=== PATIENT | female | born 1950 | race Caucasian/White ===

== ENCOUNTER 2019-06-24 16:49 | Inpatient (IN) | payer MEDICARE, OTHER ==
[2019-06-24] MEDS ORDERED: ASPIRIN 81 MG PO STA ×2 (17:18→17:25)
[2019-06-24] MEDS ORDERED: SODIUM CHLORIDE 0.9% 1,000 ML IV STA (17:18)
[2019-06-24] MEDS ORDERED: HEPARIN SODIUM,PORCINE 5,000 UNIT/ML 1 ML VIAL IV STA ×2 (17:18→17:26)
[2019-06-24] MEDS ORDERED: HEPARIN SODIUM,PORCINE 5,000 UNIT/ML 1 ML VIAL IV PRN (17:19)
[2019-06-24] MEDS ORDERED: MORPHINE SULFATE 4 MG/ML SYRINGE IV PRN (17:19)
[2019-06-24] MEDS ORDERED: NITROGLYCERIN SL TABS 0.4 MG TAB SUBLINGUAL PRN ×2 (17:19→19:02)
[2019-06-24] MEDS ORDERED: ATORVASTATIN 80 MG TAB PO STA (17:25)
[2019-06-24] MEDS ORDERED: HEPARIN SOD,PORK IN 0.45% NACL 25,000 UNIT in 0.45% NACL 1 250ML.BAG IV SCH (17:30)
[2019-06-24] MEDS ORDERED: METOPROLOL TARTRATE 25 MG TAB PO STA (17:31)
[2019-06-24 17:33] LABS: HCT 44.2 % (34.0-46.0); HGB 15.2 gm/dL (11.4-16.0); MCH 29.5 pg (25.0-35.0); MCHC 34.3 g/dL (31.0-37.0); MCV 85.9 fL (80.0-100.0); Mean Platelet Volume 7.4; Platelet Count 333 k/uL (150-450); RBC 5.14 m/uL (3.80-5.40); RDW 15.8 % (11.5-15.5); WBC 14.7 k/uL (3.8-10.6)
--- NOTE | 2019-06-24 17:34 | XR ---
EXAMINATION TYPE: XR chest 1V portable DATE OF EXAM: 06/24/2019 COMPARISON: NONE HISTORY: Chest pain TECHNIQUE: Single frontal view of the chest is obtained. FINDINGS: There is no heart failure nor confluent pneumonic infiltrate. Costophrenic angles are venu r. Her chest leads. Diaphragm is normal. IMPRESSION: Normal chest
[2019-06-24 17:40] LABS: INR 0.9 (<1.2); Partial Thromboplastin Time 23.8 sec (22.0-30.0); Prothrombin Time 10.1 sec (9.0-12.0)
[2019-06-24 17:42] LABS: ALT 58 U/L (9-52); AST 125 U/L (14-36); African American GFR (CKD) >90 (>60 ml/min/1.73 sqM); Albumin 4.6 g/dL (3.5-5.0); Alkaline Phosphatase 95 U/L (38-126); Anion Gap 11 mmol/L; Blood Urea Nitrogen 10 mg/dL (7-17); Carbon Dioxide 24 mmol/L (22-30); Chloride 103 mmol/L (98-107); Glucose 140 mg/dL (74-99); Potassium 4.1 mmol/L (3.5-5.1); Sodium 138 mmol/L (137-145); Total Bilirubin 0.9 mg/dL (0.2-1.3); Total Protein 7.7 g/dL (6.3-8.2)
[2019-06-24] MEDS ORDERED: SODIUM CHLORIDE 0.9% 1,000 ML IV ONE (17:45)
[2019-06-24] MEDS ORDERED: fentaNYL (PF) 50 MCG/ML 2 ML AMP ONE (17:56)
--- NOTE | 2019-06-24 17:56 | ED ---
Chest Pain HPI - General Chief Complaint: Chest Pain Stated Complaint: CHEST PAIN, BACK/SHOULDER BLADE PAIN Time Seen by Provider: 06/24/19 17:07 Source: patient, RN notes reviewed, old records reviewed Mode of arrival: ambulatory Limitations: no limitations - History of Present Illness Initial Comments: This is a 69-year-old female the ER for evaluation she presents today for evaluation regards to chest pain patient has had episodic chest pain for a few days to weeks. Patient started with persistent chest pain starting last night into today. She was able to sleep with difficulty and pain. Patient has pain related to both back, scapular area. Mild nausea no vomiting. No recent fevers cough or congestion no travel history. Patient has occasional shortness of breath but no diaphoresis. No history of high blood pressure normal cholesterol no diabetes no smoking. A she has no change in medications recently. No prior evaluation by cardiology MD Complaint: chest pain (to the back of his shoulder blades), other (SOB) -: hour(s) Onset: during rest Pain Location: substernal, left chest Pain Radiation: back Severity: moderate Severity scale (1-10): 7 Quality: aching Consistency: constant Improves With: nothing Worsens With: nothing Anginal Symptoms: nausea, dyspnea Other Symptoms: other (None) Treatments Prior to Arrival: none - Related Data Home Medications Medication Instructions Recorded Confirmed No Known Home Medications 06/24/19 06/24/19 Allergies Allergy/AdvReac Type Severity Reaction Status Date / Time codeine Allergy Unknown Verified 06/24/19 17:49 Review of Systems ROS Statement: Those systems with pertinent positive or pertinent negative responses have been documented in the HPI. ROS Other: All systems not noted in ROS Statement are negative. Past Medical History Past Medical History: No Reported History History of Any Multi-Drug Resistant Organisms: None Reported Past Surgical History: Hernia Repair, Hysterectomy, Tonsillectomy Additional Past Surgical History / Comment(s): D&C Past Psychological History: No Psychological Hx Reported Smoking Status: Current every day smoker Past Alcohol Use History: Occasional Past Drug Use History: None Reported General Exam Limitations: no limitations General appearance: alert, in no apparent distress, anxious Head exam: Present: atraumatic, normocephalic, normal inspection Eye exam: Present: normal appearance, EOMI. Absent: scleral icterus, conjunctival injection, periorbital swelling ENT exam: Present: normal exam, mucous membranes moist Neck exam: Present: normal inspection. Absent: tenderness, meningismus, lymphadenopathy Respiratory exam: Present: normal lung sounds bilaterally. Absent: respiratory distress, wheezes, rales, rhonchi, stridor Cardiovascular Exam: Present: regular rate, normal rhythm, normal heart sounds. Absent: systolic murmur, diastolic murmur, rubs, gallop, clicks GI/Abdominal exam: Present: soft, normal bowel sounds. Absent: distended, tenderness, guarding, rebound, rigid Extremities exam: Present: normal inspection, full ROM, normal capillary refill. Absent: tenderness, pedal edema, joint swelling, calf tenderness Back exam: Present: normal inspection Neurological exam: Present: alert, oriented X3, CN II-XII intact Psychiatric exam: Present: normal affect, normal mood Skin exam: Present: warm, dry, intact, normal color. Absent: rash Course Vital Signs 06/24/19 06/24/19 06/24/19 16:57 17:24 17:30 Temperature 98.2 F Pulse Rate 95 96 96 Pulse Rate [ Ceramic Tile Mechanic ] Respiratory 18 18 18 Rate Blood Pressure 129/89 136/94 O2 Sat by Pulse 98 Oximetry 06/24/19 06/24/19 17:35 17:36 Temperature Pulse Rate 95 Pulse Rate [ 97 Ceramic Tile Mechanic ] Respiratory 18 Rate Blood Pressure 136/94 O2 Sat by Pulse 100 Oximetry - Reevaluation(s) Reevaluation #1: 06/24/19 17:20 medical record is reviewer 06/24/19 17:21 STEMI is paged upon review of initial EKG, cath team as well as structural iron erector, Dr. Villar notified Reevaluation #2: 06/24/19 17:52 Dr. Villar is at bedside evaluating patient Reevaluation #3: 06/24/19 17:55 Studies Chest x-rays negative for acute disease - Consultations Consultation #1: Spoke with Dr. Perera regarding patient, he is aware of admission Procedures - [place] Protocol (Time Out) Patient Identification (2 identifiers required): Chart, Verbal, Arm Band, Name, Birthdate Patient/Legal Lump Room Supervisor has Confirmed: Identity, Procedure Site Marked: Not Applicable Chest Pain MDM - MDM 69 female the ER for evaluation. Patient presents today for evaluation of chest pain. Positive ST elevation [place], cardiology did evaluate patient in ER taken to [facility]. Critical Care Time Critical Care Time: Yes Total Critical Care Time: 31 Disposition Clinical Impression: ST elevation myocardial infarction (STEMI) Disposition: ADMITTED IP TO THIS HOSP Condition: Serious Is patient prescribed a controlled substance at d/c from ED?: No Referrals: Sunita Rivas DO [Primary Care Provider] - 1-2 days
[2019-06-24] MEDS ORDERED: fentaNYL (PF) 50 MCG/ML 2 ML AMP IVP ONE (17:57)
[2019-06-24] MEDS ORDERED: LIDOCAINE 1% INJ 10MG/ML (20 ML MDV) SQ ONE (17:58)
[2019-06-24] MEDS ORDERED: BIVALIRUDIN 250 MG in SODIUM CHLORIDE 0.9% 50 ML IV ONE (17:59)
[2019-06-24] MEDS ORDERED: BIVALIRUDIN BOLUS 250 MG/50 ML IV ONE (17:59)
[2019-06-24] MEDS ORDERED: TICAGRELOR 90 MG TAB PO ONE (18:00)
[2019-06-24] MEDS ORDERED: TICAGRELOR 90 MG TAB ONE (18:00)
--- NOTE | 2019-06-24 18:00 | P.CRDCN ---
History of Present Illness History of present illness: This is Dr. De La Cruz dictating a consult on this patient The patient was interviewed and examined by me in the ER Called by the ER physician for this 69-year-old female presenting with chest discomfort and ST elevation in the precordial leads IMPRESSION / ASSESSMENT: 69-year-old female patient presenting with constant chest discomfort since this morning which woke her up Associated ST elevations in V1 through V6 with Q waves in the anterior precordial leads Hemodynamically stable but continuing to have chest discomfort Nondiabetic, no hypertension, Current smoker PLAN: Discussed with patient and her , discussed with ER physician Dr. Elkin antonio urgent coronary angiography and coronary intervention Aspirin, statins, beta blockers LV function assessment tomorrow HPI For the last 3-4 days the patient has been having intermittent interscapular discomfort with associated left shoulder and arm discomfort. She thought it was a gas-like sensation and arthritic pain in her left shoulder and arm. She also would have chest discomfort in the right side at the same time She noted the symptoms thinking that this was simply gas pain and arthritis in her shoulders This morning she woke up early because the pain became constant. However she presented to the hospital only this evening just after 5 PM No syncope no palpitations. She did complain of shortness of breath with average activities ROS: No fever chills or rigors, no cough, phlegm or expectoration, no nausea, vomiting or diarrhea, no hematuria, dysuria, no musculoskeletal complaints, no strokes or seizures, no skin lesions. EXAMINATION: Her vitals are stable. She looks uncomfortable on account of the pain, pulse rate in the 90s, blood pressure 136/94 mmHg 98% O2 sat on room air Afebrile 98.2F Breath sounds are clear no rhonchi no crackles Heart sounds S1 and S2 are normal no gallops no rub Very soft systolic murmur over the precordium Breath sounds are clear no adventitious sounds no rhonchi no crackles at the bases Abdomen soft nontender no masses Pulses are palpable in lower extremities dorsalis pedis bilaterally No lower extremity edema No JVD no hepatojugular reflux Normal mentation REVIEW OF LABS, ECG & MEDICAL DATA hemoglobin 15.2, sodium 138 potassium 4.1 BUN 10 creatinine 0.6 AST 125 ALT 58 total CPK 984 Troponins pending She does not take any medications other than Aleve She is intolerant of codeine Current smoker Past Medical History Past Medical History: No Reported History History of Any Multi-Drug Resistant Organisms: None Reported Past Surgical History: Hernia Repair, Hysterectomy, Tonsillectomy Additional Past Surgical History / Comment(s): D&C Past Psychological History: No Psychological Hx Reported Smoking Status: Current every day smoker Past Alcohol Use History: Occasional Past Drug Use History: None Reported Medications and Allergies Home Medications Medication Instructions Recorded Confirmed Type No Known Home Medications 06/24/19 06/24/19 History Allergies Allergy/AdvReac Type Severity Reaction Status Date / Time codeine Allergy Unknown Verified 06/24/19 17:49 Physical Exam Vitals: Vital Signs Temp Pulse Pulse Resp BP Pulse Ox 06/24/19 17:36 97 06/24/19 17:35 95 18 136/94 100 06/24/19 17:30 96 18 136/94 06/24/19 17:24 96 18 06/24/19 16:57 98.2 F 95 18 129/89 98 Intake and Output 06/24/19 06/24/19 06/24/19 06:59 14:59 22:59 Other: Weight 86.183 kg Results 06/24/19 17:22 06/24/19 17:22 Cardiac Enzymes 06/24/19 Range/Units 17:22 AST 125 H (14-36) U/L Coagulation 06/24/19 Range/Units 17:22 PT 10.1 (9.0-12.0) sec APTT 23.8 (22.0-30.0) sec CBC 06/24/19 Range/Units 17:22 WBC 14.7 H (3.8-10.6) k/uL RBC 5.14 (3.80-5.40) m/uL Hgb 15.2 (11.4-16.0) gm/dL Hct 44.2 (34.0-46.0) % Plt Count 333 (150-450) k/uL Comprehensive Metabolic Panel 06/24/19 Range/Units 17:22 Sodium 138 (137-145) mmol/L Potassium 4.1 (3.5-5.1) mmol/L Chloride 103 (98-107) mmol/L Carbon Dioxide 24 (22-30) mmol/L BUN 10 (7-17) mg/dL Creatinine 0.69 (0.52-1.04) mg/dL Glucose 140 H (74-99) mg/dL Calcium 10.0 (8.4-10.2) mg/dL AST 125 H (14-36) U/L ALT 58 H (9-52) U/L Alkaline Phosphatase 95 (38-126) U/L Total Protein 7.7 (6.3-8.2) g/dL Albumin 4.6 (3.5-5.0) g/dL Current Medications Generic Name Dose Route Start Last Admin Trade Name Freq PRN Reason Stop Dose Admin Aspirin 325 mg 06/25/19 09:00 Aspirin PO DAILY [facility] Atorvastatin Calcium 80 mg 06/25/19 09:00 Lipitor PO DAILY [facility] Heparin Sodium (Porcine) 0 unit 06/24/19 17:19 Heparin IV Q6HR PRN Low PTT Protocol Sodium Chloride 1,000 mls @ 100 mls/hr 06/24/19 17:18 Saline 0.9% IV 06/25/19 03:17 .Q10H STA Heparin Sodium/Sodium Chloride 250 mls @ 9.997 mls/hr 06/24/19 17:30 25,000 unit/ Sodium Chloride IV .Q24H [facility] Protocol 11.6 UNITS/KG/HR Metoprolol Tartrate 25 mg 06/24/19 21:00 Lopressor PO BID [facility] Morphine Sulfate 4 mg 06/24/19 17:19 Morphine Sulfate (Inj) IV Q4HR PRN Chest Pain Nitroglycerin 0.4 mg 06/24/19 17:19 Nitrostat SUBLINGUAL Q5M PRN Chest Pain Intake and Output 06/24/19 06/24/19 06/24/19 06:59 14:59 22:59 Other: Weight 86.183 kg Patient Weight 06/25/19 06:59 Weight 86.183 kg 06/24/19 17:22 06/24/19 17:22
[2019-06-24 18:06] LABS: Creatine Kinase MB 62.1 ng/mL (0.0-2.4)
[2019-06-24 18:09] LABS: Troponin I 8.96 ng/mL (0.000-0.034)
[2019-06-24] MEDS: NITROGLYCERIN 1000MCG/10ML SYRINGE INTRAARTER ONE ×2 (18:09→18:36)
[2019-06-24] MEDS ORDERED: IOPAMIDOL-370 125ML BTL INJ ONE (18:10)
[2019-06-24] MEDS ORDERED: IOPAMIDOL-370 100ML BTL INJ ONE ×2 (18:34→18:49)
[2019-06-24] MEDS ORDERED: RX INFO: IV CONTRAST WAS GIVEN 1 EACH MISC MISCELLANE PRN (19:02)
[2019-06-24] MEDS ORDERED: ZOLPIDEM 5 MG TAB PO PRN (19:02)
[2019-06-24] MEDS ORDERED: ATROPINE SULFATE 0.1 MG/ML 10ML SYRINGE IV PRN (19:02)
[2019-06-24] MEDS ORDERED: MAG HYDROX/AL HYDROX/SIMETH 30 ML CUP PO PRN (19:02)
[2019-06-24 19:12] LABS: Glucose,Whole Blood 124 mg/dL (75-99)
[2019-06-24] MEDS ORDERED: SODIUM CHLORIDE 0.9% 1,000 ML IV SCH (19:15)
[2019-06-24] MEDS ORDERED: METOPROLOL TARTRATE 25 MG TAB PO SCH (21:00)
[2019-06-24] MEDS ORDERED: ACETAMINOPHEN TAB 500 MG TAB PO PRN (21:47)
--- NOTE | 2019-06-25 00:50 | CC ---
CARDIAC CATHETERIZATION REPORT Mrs. Haas is a 69-year-old female with a history of chronic tobacco use. No prior history of coronary artery disease who presented with symptoms of chest discomfort that started at 3 o'clock in the morning. She has been having discomfort on and off for the last 2 days, but constant since 3 o'clock in the morning. She was evaluated in the emergency room by Dr. De La Cruz, was found to have ST elevation anteriorly. In view of that, recommendation made regarding cardiac catheterization. The procedure as well as risks and complications were discussed with the patient who is in full understanding and agreement. DESCRIPTION OF THE PROCEDURE: Patient was brought to the photonic laboratory technician. She was draped and prepped in conventional fashion. She received fentanyl and Benadryl. After achieving moderate conscious sedated state using Xylocaine anesthesia and Seldinger technique, a 6-Ecuadorean sheath was introduced in the right femoral artery. Selective left coronary angiography was performed using 6-Ecuadorean FR4 guiding catheter. After performing angioplasty and stenting, a 6-Ecuadorean 4 bend right Frannie catheter was used to cannulate the right coronary ostium and images of the right coronary artery was performed. Following that, a 6-Ecuadorean tight pigtail catheter was introduced in the left ventricle and pressures were calculated. Following that, the catheter and sheaths were removed. Hemostasis was obtained with deployment of an Angio-Seal. There was no immediate complication. Patient is returned to room in stable condition. FINDINGS: LEFT MAIN: This is a large-sized vessel trifurcating into left circumflex, left anterior descending artery and ramus intermedius. Left main coronary artery has no evidence of high-grade stenosis. LEFT ANTERIOR DESCENDING ARTERY: This vessel reaches toward the apex and gives rise to a moderately sized diagonal branch in mid segment proximally. Prior to the diagonal branch, there is 99% stenosis and there is another plaque of 99% stenosis at the takeoff of diagonal branch. The flow into the LAD is slow as well as in the diagonal branch. LEFT CIRCUMFLEX: This is a large dominant vessel giving rise to PDA and PLV distally. The left circumflex as well as branches have no evidence of obstructive coronary artery disease. RAMUS INTERMEDIUS: This is a large-sized vessel reaching to the apical lateral wall. The ramus intermedius has no evidence of high-grade stenosis. RIGHT CORONARY ARTERY: This is a small size vessel, nondominant that has no evidence of high-grade stenosis. LEFT VENTRICULOGRAM: Left ventriculogram was not performed. HEMODYNAMICS: There was no gradient across the aortic valve. The left ventricle end-diastolic pressure was 32 mmHg. CONCLUSION: 1. Subtotally occluded proximal LAD affecting the flow into the first diagonal branch. 2. Elevated left ventricular end-diastolic pressure. 3. Left dominant system. RECOMMENDATION: In view of findings and anatomy, I recommend proceeding with angioplasty and stenting. The procedures, risks and complication were discussed with the patient who is in full understanding and agreement. MMODL / IJN: [id number] /
--- NOTE | 2019-06-25 00:56 | PTCA ---
PERCUTANEOUSTRANS CORORONARY ANGIOGRAPHY Mrs. Haas is a 69-year-old female with no prior documented coronary artery disease who presented with symptoms of chest discomfort and ST-segment elevation anteriorly. She was evaluated by Dr. De La Cruz and recommendation made regarding cardiac catheterization. Her cardiac catheterization shows subtotally occluded proximal LAD in a long segment. In view of that, recommendation made regarding angioplasty and stenting. The procedure, risks and complications were discussed with the patient who is in full understanding and agreement. DESCRIPTION OF THE PROCEDURE: Using the 6-Zimbabwean FR4 guiding catheter a 0.014 balanced medium weight J-wire was advanced across the lesion positioned in the distal LAD. Subsequently a 2.5 x 12 mm Trek balloon was advanced and 2 inflations at a maximum of 8 atmospheres were done. Following that, the balloon was removed and attempt to advance another 0.014 balanced medium weight J-wire into the first diagonal branch were unsuccessful. That wire was removed and a 0.014 whisper J-wire was advanced in the diagonal branch. Subsequently attempt to advance the 2.5 x 12 mm Trek balloon were unsuccessful. That balloon was removed and a 2.25 x 12 mm Trek balloon was advanced and 2 inflations at maximum of 8 atmospheres were done. Following that, the balloon was removed and the Whisper J-wire was removed and subsequently a 3.0 x 23 mm Xience Summer stent was deployed. It was dilated at 16 atmospheres. After the last inflation, after appropriate wait, the balloon and the guidewire were withdrawn back in the guiding catheter. Images were obtained repeated. Those images reveal stable successful stenting. Subsequently a right coronary angiography was performed and left ventricular end-diastolic pressure was calculated. Following that catheter and sheaths were removed. Hemostasis was obtained with deployment of an Angio-Seal. There was no immediate complication. Patient is returned to room in stable condition. Of note, the patient received Angiomax per protocol as well as oral loading dose of Brilinta. She was pain- free at the end procedure and her EKG showed improvement in the ST-segment depression and ST- segment elevation. RESULTS: Successful stenting of a long segment of the proximal LAD with reduction of stenosis from 99% to 0%. RECOMMENDATION: Patient will be continued on aspirin, Brilinta, beta blockers and statin. The importance of dual antiplatelet treatment and smoking cessation were discussed with the patient and her family and they are in full understanding and agreement. MMPRIYAL / IJN: [id number] / WILLIE
[2019-06-25 05:03] LABS: Mean Platelet Volume 7.4; Platelet Count 261 k/uL (150-450)
[2019-06-25 05:11] LABS: African American GFR (CKD) >90 (>60 ml/min/1.73 sqM); Anion Gap 5 mmol/L; Blood Urea Nitrogen 8 mg/dL (7-17); Calcium 9.1 mg/dL (8.4-10.2); Carbon Dioxide 25 mmol/L (22-30); Chloride 103 mmol/L (98-107); Cholesterol 204 mg/dL (<200); Glucose 135 mg/dL (74-99); HDL Cholesterol 35 mg/dL (40-60); LDL Cholesterol,Calculated 144 mg/dL (0-99); Potassium 4.1 mmol/L (3.5-5.1); Sodium 133 mmol/L (137-145); Triglycerides 125 mg/dL (<150)
[2019-06-25] MEDS: LISINOPRIL 2.5 MG TAB PO SCH (08:43)
[2019-06-25] MEDS: ATORVASTATIN 80 MG TAB PO SCH (08:43)
[2019-06-25] MEDS: TICAGRELOR 90 MG TAB PO SCH ×2 (08:43→19:59)
[2019-06-25] MEDS: ASPIRIN 81 MG PO SCH (08:43)
[2019-06-25] MEDS: SPIRONOLACTONE 25 MG TAB PO SCH (08:45)
[2019-06-25] MEDS: METOPROLOL TARTRATE 12.5 MG TAB PO SCH ×2 (08:45→19:59)
[2019-06-25] MEDS ORDERED: ONDANSETRON 4 MG/2 ML VIAL IVP PRN (08:51)
[2019-06-25] MEDS ORDERED: ASPIRIN 325 MG TAB PO SCH (09:00)
[2019-06-25] MEDS ORDERED: SPIRONOLACTONE 25 MG TAB PO SCH (09:00)
--- NOTE | 2019-06-25 09:23 | P.PN ---
Subjective Progress Note Date: 06/25/19 This is a 69-year-old female who was admitted with prolonged recurrent chest pains and evidence of anterior wall myocardial infarction. Patient had stent placement of the left anterior descending coronary artery by Dr. Granger. Patient isn't feeling better except complaining of mild shortness of breath with exertion and also nausea. Her troponins went up to 150. EKGs showed evidence of ST elevations. Patient denies any chest pain. Her blood pressure was running low. No arrhythmias detected. We'll continue with current medical therapy with beta deon, EDER inhibitor, aspirin, the length and also lipid- lowering agent. Her groin is soft. Blood works seems to be stable Objective - Vital Signs Vital signs: Vital Signs Temp 98.7 F 06/25/19 08:00 Pulse 90 06/25/19 08:00 Resp 28 H 06/25/19 08:00 BP 119/73 06/25/19 08:00 Pulse Ox 97 06/25/19 08:00 Intake & Output 06/24/19 06/25/19 06/25/19 18:59 06:59 18:59 Intake Total 335 1100 100 Output Total 150 0 Balance 335 950 100 Weight 86.183 kg Intake: IV 335 600 Sodium Chloride 0.9% 1, 600 000 ml @ 100 mls/hr IV . Q10H STA Rx#:[id number] Oral 500 Tube Feeding 100 Output: Urine 150 0 Other: # Voids 1 1 - Exam GENERAL EXAM: Patient is alert and oriented and doesn't appear to be in any acute distress HEENT: Normocephalic. Normal reaction of pupils, equal size, normal range of extraocular motion. No erythema or exudates in the throat. NECK: No masses, no nuchal rigidity. CHEST: No chest wall deformity. LUNGS: Few rales at the right base which cleared with coughing and deep breathing HEART: S1 and S2 normal with no audible mumurs or gallops. Regular rhythm, femorals equal on both sides.. ABDOMEN: No hepatosplenomegaly, normal bowel sounds, no guarding or rigidity. SKIN: No rashes CENTRAL NERVOUS SYSTEM: No focal deficits. EXTREMITIES: No cyanosis, clubbing or edema. - Labs CBC & Chem 7: 06/25/19 04:39 06/25/19 04:39 Labs: Abnormal Lab Results - Last 24 Hours (Table) 06/24/19 06/24/19 06/24/19 Range/Units 17:22 17:22 17:22 WBC 14.7 H (3.8-10.6) k/uL RDW 15.8 H (11.5-15.5) % Sodium (137-145) mmol/L Glucose 140 H (74-99) mg/dL POC Glucose (mg/dL) (75-99) mg/dL AST 125 H (14-36) U/L ALT 58 H (9-52) U/L Total Creatine Kinase 984 H (30-135) U/L CK-MB (CK-2) 62.1 H (0.0-2.4) ng/mL Troponin I 8.960 H* (0.000-0.034) ng/mL Cholesterol (<200) mg/dL LDL Cholesterol, Calc (0-99) mg/dL HDL Cholesterol (40-60) mg/dL 06/24/19 06/24/19 06/25/19 Range/Units 19:09 23:23 04:39 WBC (3.8-10.6) k/uL RDW (11.5-15.5) % Sodium (137-145) mmol/L Glucose (74-99) mg/dL POC Glucose (mg/dL) 124 H (75-99) mg/dL AST (14-36) U/L ALT (9-52) U/L Total Creatine Kinase (30-135) U/L CK-MB (CK-2) (0.0-2.4) ng/mL Troponin I 152.000 H* 98.800 H* (0.000-0.034) ng/mL Cholesterol (<200) mg/dL LDL Cholesterol, Calc (0-99) mg/dL HDL Cholesterol (40-60) mg/dL 06/25/19 Range/Units 04:39 WBC (3.8-10.6) k/uL RDW (11.5-15.5) % Sodium 133 L (137-145) mmol/L Glucose 135 H (74-99) mg/dL POC Glucose (mg/dL) (75-99) mg/dL AST (14-36) U/L ALT (9-52) U/L Total Creatine Kinase (30-135) U/L CK-MB (CK-2) (0.0-2.4) ng/mL Troponin I (0.000-0.034) ng/mL Cholesterol 204 H (<200) mg/dL LDL Cholesterol, Calc 144 H (0-99) mg/dL HDL Cholesterol 35 L (40-60) mg/dL Assessment and Plan (1) ST elevation myocardial infarction (STEMI) Current Visit: Yes Status: Acute Code(s): I21.3 - ST ELEVATION (STEMI) MYOCARDIAL INFARCTION OF [facility] SITE SNOMED Code(s): 12436089 Plan: Continue current medical therapy. Increase activity as tolerated. Possible transfer to telemetry unit tomorrow
--- NOTE | 2019-06-25 10:01 | ECHOF ---
Referral Reason:mi MEASUREMENTS -------- HEIGHT: 172.7 cm WEIGHT: 86.2 kg BP: 97/61 IVSd: 1.2 cm (0.6 - 1.1) LVIDd: 4.8 cm (3.9 - 5.3) LVPWd: 0.9 cm (0.6 - 1.1) IVSs: 1.3 cm LVIDs: 3.9 cm LVPWs: 0.8 cm LAESV Index (A-L): 27.89 ml/m Ao Diam: 2.7 cm (2.0 - 3.7) AV Cusp: 1.3 cm (1.5 - 2.6) LA Diam: 2.6 cm (2.7 - 3.8) MV EXCURSION: 14.924 mm (> 18.000) MV EF SLOPE: 136 mm/s (70 - 150) MV E Niels: 0.84 m/s MV DecT: 185 ms MV A Niels: 0.77 m/s MV E/A Ratio: 1.09 RAP: 5.00 mmHg RVSP: 20.06 mmHg FINDINGS -------- Sinus rhythm. This was a technically difficult study with suboptimal views. The left ventricular size is normal. There is borderline concentric left ventricular hypertrophy. Overall left ventricular systolic function is moderate-severely impaired with, an EF between 30 - 35 %. Normal LAP Grade 1 Diastolic Dysfunction. Mid anterior LV wall motion is akinetic. Mid ant eroseptal LV wall motion is akinetic. Apical anterior LV wall motion is akinetic. Apical latera l LV wall motion is akinetic. Apical inferior LV wall motion is akinetic. Apical septum LV wall motion is akinetic. The right ventricle is normal in size. Normal LA size by volume 22+/-6 ml/m2. The right atrial size is normal. Lumason used The aortic valve is trileaflet, and appears structurally normal. No aortic stenosis or regurgitation. The mitral valve is normal. Mild mitral regurgitation is present. The tricuspid valve appears structurally normal. Trace tricuspid regurgitation present. Right fady tricular systolic pressure is normal at < 35 mmHg. There is no pulmonic regurgitation present. The aortic root size is normal. The inferior vena cava is mildly dilated. There is no pericardial effusion. CONCLUSIONS -------- 1. Sinus rhythm. 2. This was a technically difficult study with suboptimal views. 3. The left ventricular size is normal. 4. There is borderline concentric left ventricular hypertrophy. 5. Overall left ventricular systolic function is moderate-severely impaired with, an EF between 30 - 35 %. 6. Normal LAP Grade 1 Diastolic Dysfunction. 7. Mid anterior LV wall motion is akinetic. 8. Mid anteroseptal LV wall motion is akinetic. 9. Apical anterior LV wall motion is akinetic. 10. Apical lateral LV wall motion is akinetic. 11. Apical inferior LV wall motion is akinetic. 12. Apical septum LV wall motion is akinetic. 13. Normal LA size by volume 22+/-6 ml/m2. 14. Lumason used 15. The aortic valve is trileaflet, and appears structurally normal. No aortic stenosis or regurgitat ion. 16. The mitral valve is normal. 17. Mild mitral regurgitation is present. 18. The tricuspid valve appears structurally normal. 19. Trace tricuspid regurgitation present. 20. Right ventricular systolic pressure is normal at < 35 mmHg. 21. There is no pulmonic regurgitation present. 22. The aortic root size is normal. 23. The inferior vena cava is mildly dilated. 24. There is no pericardial effusion. LEGAL TRANSCRIBER: Regine Miller RDCS
[2019-06-25 10:52] VITALS: BMI 28.8
--- NOTE | 2019-06-25 14:06 | P.HPIM ---
History of Present Illness H&P Date: 06/25/19 Chief Complaint: shoulder blade pain Eva Haas is a 69 yo F with no significant PMH who presented to the ED after experiencing a 4 day history of intermittent interscapular pain, L shoulder pain, and LUE discomfort. She states this feeling had not been associated with activity and waxed and waned in intensity throughout the day. She denies chest pressure, palpitations, or shortness of breath. Pt did experience a bit of nausea and some diaphoresis with her pain. She notes she thought it was gas or her gallbladder and had tried to move around but could not get comfortable. When her pain worsened and became constant this am, pt came in to the hospital for evaluation. Pt is a nonsmoker, no hx HTN or DM, denies family history of heart disease or stroke. In the ED, her vitals were stable, EKG showed STEMI, WBC 14k, initial trop 8, BNP 2000. Pt was started on heparin and cardiology consulted. She went for cath last night which did show LAD occlusion and she is s/p stenting today. She does feel her discomfort is improved this am. Review of Systems All systems: negative Constitutional: Reports malaise, Reports sweats, Reports weakness, Denies chills, Denies fever Eyes: denies blurred vision, denies pain Ears, nose, mouth and throat: Denies headache, Denies sore throat Cardiovascular: Reports chest pain, Denies dyspnea on exertion, Denies edema, Denies irregular heart beat, Denies lightheadedness, Denies orthopnea, Denies shortness of breath Respiratory: Denies cough Gastrointestinal: Denies abdominal pain, Denies diarrhea, Denies nausea, Denies vomiting Genitourinary: Denies dysuria, Denies hematuria Musculoskeletal: Reports arm numbness/tingling, Denies myalgias Integumentary: Denies pruritus, Denies rash Neurological: Denies numbness, Denies weakness Psychiatric: Denies anxiety, Denies depression Endocrine: Denies fatigue, Denies weight change Past Medical History Past Medical History: No Reported History History of Any Multi-Drug Resistant Organisms: None Reported Past Surgical History: Hernia Repair, Hysterectomy, Tonsillectomy Additional Past Surgical History / Comment(s): D&C - multiple, colonoscopy Past Psychological History: No Psychological Hx Reported Smoking Status: Current every day smoker Past Alcohol Use History: Occasional Past Drug Use History: None Reported Medications and Allergies Home Medications Medication Instructions Recorded Confirmed Type No Known Home Medications 06/24/19 06/24/19 History Allergies Allergy/AdvReac Type Severity Reaction Status Date / Time codeine Allergy Unknown Verified 06/24/19 17:49 Physical Exam Vitals: Vital Signs Temp Pulse Pulse Resp BP Pulse Ox 06/25/19 10:00 90 20 113/69 95 06/25/19 09:00 98 17 114/68 97 06/25/19 08:00 98.7 F 90 28 H 119/73 97 06/25/19 07:00 94 23 95/55 97 06/25/19 06:00 86 14 91/61 97 06/25/19 05:00 88 23 98/73 96 06/25/19 04:00 98.4 F 87 18 101/70 92 L 06/25/19 03:00 89 18 97/61 92 L 06/25/19 02:01 85 12 113/75 93 L 06/25/19 01:00 94 28 H 122/76 92 L 06/25/19 00:00 98.7 F 93 28 H 123/87 93 L 06/24/19 23:00 93 28 H 128/89 97 06/24/19 22:00 99 26 H 131/81 98 06/24/19 21:00 101 H 25 H 130/85 97 06/24/19 20:00 98.5 F 97 21 136/86 98 06/24/19 19:30 94 17 125/81 97 06/24/19 19:20 98.7 F 97 13 125/81 97 06/24/19 18:12 98.2 F 95 18 136/94 100 06/24/19 17:36 97 06/24/19 17:35 95 18 136/94 100 06/24/19 17:30 96 18 136/94 06/24/19 17:24 96 18 06/24/19 16:57 98.2 F 95 18 129/89 98 Intake and Output 06/24/19 06/25/19 06/25/19 22:59 06:59 14:59 Intake Total 885 550 100 Output Total 150 0 150 Balance 735 550 -50 Intake: IV 635 300 Sodium Chloride 0.9% 1, 300 300 000 ml @ 100 mls/hr IV . Q10H STA Rx#:[id number] Oral 250 250 Tube Feeding 100 Output: Urine 150 0 150 Other: # Voids 1 1 1 Weight 86.183 kg 86.183 kg General: well nourished, well developed, NAD. Vitals reviewed Eyes: PERRL, EOMI, conjunctiva normal HENT: normocephalic, mucus membranes moist Neck: supple, no JVD Lungs: normal respiratory effort, no wheezes or rales CV: Regular rate and rhythm, no murmur. Peripheral pulses 2+ Abdomen: soft, nondistended, no organomegaly Lymph: no cervical or axillary LAD Skin: warm and dry. Neuro: A&Ox3, normal mood and affect Results CBC & Chem 7: 06/25/19 04:39 06/25/19 04:39 Labs: Abnormal Lab Results - Last 24 Hours (Table) 06/24/19 06/24/19 06/24/19 Range/Units 17:22 17:22 17:22 WBC 14.7 H (3.8-10.6) k/uL RDW 15.8 H (11.5-15.5) % Sodium (137-145) mmol/L Glucose 140 H (74-99) mg/dL POC Glucose (mg/dL) (75-99) mg/dL AST 125 H (14-36) U/L ALT 58 H (9-52) U/L Total Creatine Kinase 984 H (30-135) U/L CK-MB (CK-2) 62.1 H (0.0-2.4) ng/mL Troponin I 8.960 H* (0.000-0.034) ng/mL Cholesterol (<200) mg/dL LDL Cholesterol, Calc (0-99) mg/dL HDL Cholesterol (40-60) mg/dL 06/24/19 06/24/19 06/25/19 Range/Units 19:09 23:23 04:39 WBC (3.8-10.6) k/uL RDW (11.5-15.5) % Sodium (137-145) mmol/L Glucose (74-99) mg/dL POC Glucose (mg/dL) 124 H (75-99) mg/dL AST (14-36) U/L ALT (9-52) U/L Total Creatine Kinase (30-135) U/L CK-MB (CK-2) (0.0-2.4) ng/mL Troponin I 152.000 H* 98.800 H* (0.000-0.034) ng/mL Cholesterol (<200) mg/dL LDL Cholesterol, Calc (0-99) mg/dL HDL Cholesterol (40-60) mg/dL 06/25/19 Range/Units 04:39 WBC (3.8-10.6) k/uL RDW (11.5-15.5) % Sodium 133 L (137-145) mmol/L Glucose 135 H (74-99) mg/dL POC Glucose (mg/dL) (75-99) mg/dL AST (14-36) U/L ALT (9-52) U/L Total Creatine Kinase (30-135) U/L CK-MB (CK-2) (0.0-2.4) ng/mL Troponin I (0.000-0.034) ng/mL Cholesterol 204 H (<200) mg/dL LDL Cholesterol, Calc 144 H (0-99) mg/dL HDL Cholesterol 35 L (40-60) mg/dL Thrombosis Risk Factor Assmnt - Choose All That Apply Each Factor Represents 1 point: Acute [place] Each Risk Factor Represents 2 Points: Age 61-74 years Thrombosis Risk Factor Assessment Total Risk Factor Score: 3 Thrombosis Risk Factor Assessment Level: Moderate Risk Assessment and Plan (1) Occlusion of left anterior descending artery Current Visit: Yes Status: Acute Code(s): I24.0 - ACUTE CORONARY THROMBOSIS NOT RESULTING IN MYOCARDIAL INFRC SNOMED Code(s): 689890817 (2) Coronary artery disease Current Visit: Yes Status: Acute Code(s): I25.10 - ATHSCL HEART DISEASE OF [place] CORONARY ARTERY W/O ANG PCTRS SNOMED Code(s): 60953530 (3) Leukocytosis Current Visit: Yes Status: Acute Code(s): D72.829 - ELEVATED WHITE BLOOD CELL COUNT, UNSPECIFIED SNOMED Code(s): 228329981 (4) ST elevation myocardial infarction (STEMI) Current Visit: Yes Status: Acute Code(s): I21.3 - ST ELEVATION (STEMI) MYOC ARDIAL INFARCTION OF [place] SITE SNOMED Code(s): 20396116 (5) Acute HFrEF (heart failure with reduced ejection fraction) Current Visit: Yes Status: Acute Code(s): I50.21 - ACUTE SYSTOLIC (CONGESTIVE) HEART FAILURE SNOMED Code(s): 946278807 Plan: 1. STEMI. Cardiology following. S/p coronary catheterization and stenting. Continue heparin, BB, EDER, statin and ASA 2. Acute systolic CHF. Secondary to NV. EF 30-35%. Continue aldactone on dc
[2019-06-26 04:59] LABS: HCT 38.3 % (34.0-46.0); HGB 12.5 gm/dL (11.4-16.0); MCH 28.1 pg (25.0-35.0); MCHC 32.5 g/dL (31.0-37.0); MCV 86.5 fL (80.0-100.0); Mean Platelet Volume 7.2; Platelet Count 234 k/uL (150-450); RBC 4.43 m/uL (3.80-5.40); RDW 13.2 % (11.5-15.5); WBC 9.7 k/uL (3.8-10.6)
[2019-06-26 05:20] LABS: African American GFR (CKD) >90 (>60 ml/min/1.73 sqM); Anion Gap 5 mmol/L; Blood Urea Nitrogen 9 mg/dL (7-17); Calcium 8.4 mg/dL (8.4-10.2); Carbon Dioxide 26 mmol/L (22-30); Chloride 105 mmol/L (98-107); Glucose 103 mg/dL (74-99); Potassium 3.6 mmol/L (3.5-5.1); Sodium 136 mmol/L (137-145)
[2019-06-26] MEDS ORDERED: Potassium Replacement Protocol 1 EACH MISC MISCELLANE PRN (05:54)
[2019-06-26] MEDS ORDERED: POTASSIUM CHLORIDE ER 20 MEQ TAB.ER PO SCH (06:00)
[2019-06-26] MEDS: SPIRONOLACTONE 25 MG TAB PO SCH (08:54)
[2019-06-26] MEDS: TICAGRELOR 90 MG TAB PO SCH ×2 (08:54→21:07)
[2019-06-26] MEDS: ATORVASTATIN 80 MG TAB PO SCH (08:54)
[2019-06-26] MEDS: LISINOPRIL 2.5 MG TAB PO SCH (08:54)
[2019-06-26] MEDS: METOPROLOL TARTRATE 12.5 MG TAB PO SCH ×2 (08:54→21:08)
[2019-06-26] MEDS: ASPIRIN 81 MG PO SCH (08:56)
--- NOTE | 2019-06-26 15:00 | P.PN ---
Subjective Progress Note Date: 06/26/19 This is a 69-year-old female who was admitted with prolonged recurrent chest pains and evidence of anterior wall myocardial infarction. Patient had stent placement of the left anterior descending coronary artery by Dr. Granger. Patient isn't feeling better except complaining of mild shortness of breath with exertion and also nausea. Her troponins went up to 150. EKGs showed evidence of ST elevations. Patient denies any chest pain. Her blood pressure was running low. No arrhythmias detected. We'll continue with current medical therapy with beta deon, EDER inhibitor, aspirin, the length and also lipid- lowering agent. Her groin is soft. Blood works seems to be stable. 06/26/2017: The patient continues to be stable. Denies any chest pain or shortness of breath. Her blood pressures running low in the 90s. Heart rate is about 80-90. She is on beta deon and also small dose of EDER inhibitor . Lungs appeared to be clear. Heart is regular. No arrhythmias detected. Patient is being transferred to stepdown unit. Increase activity as tolerated. Possible discharge within next 24-48 hours Objective - Vital Signs Vital signs: Vital Signs Temp 98.2 F 06/26/19 12:00 Pulse 83 06/26/19 12:00 Resp 19 06/26/19 12:00 BP 88/57 06/26/19 12:00 Pulse Ox 95 06/26/19 05:00 Intake & Output 06/25/19 06/26/19 06/26/19 18:59 06:59 18:59 Intake Total 700 100 240 Output Total 700 550 500 Balance 0 -450 -260 Weight 86.183 kg 91.9 kg Intake: Oral 600 100 240 Tube Feeding 100 Output: Urine 700 550 500 Other: Voiding Method Bedside Commode Bedside Commode # Voids 1 # Bowel Movements 1 - Exam GENERAL EXAM: Patient is alert and oriented and doesn't appear to be in any acute distress HEENT: Normocephalic. Normal reaction of pupils, equal size, normal range of extraocular motion. No erythema or exudates in the throat. NECK: No masses, no nuchal rigidity. CHEST: No chest wall deformity. LUNGS: Few rales at the right base which cleared with coughing and deep breathing HEART: S1 and S2 normal with no audible mumurs or gallops. Regular rhythm, femorals equal on both sides.. ABDOMEN: No hepatosplenomegaly, normal bowel sounds, no guarding or rigidity. SKIN: No rashes CENTRAL NERVOUS SYSTEM: No focal deficits. EXTREMITIES: No cyanosis, clubbing or edema. - Labs CBC & Chem 7: 06/26/19 04:16 06/26/19 04:16 Labs: Abnormal Lab Results - Last 24 Hours (Table) 06/26/19 Range/Units 04:16 Sodium 136 L (137-145) mmol/L Glucose 103 H (74-99) mg/dL Assessment and Plan (1) ST elevation myocardial infarction (STEMI) Current Visit: Yes Status: Acute Code(s): I21.3 - ST ELEVATION (STEMI) MYOCARDIAL INFARCTION OF [facility] SITE SNOMED Code(s): 91233186 Plan: Patient is critically stable. Status post myocardial infarction and stent placement. Being transferred to telemetry. Possible discharge within 24-48 hours. Her echo [place] showed severely impaired LV function with ejection fraction about 30-35%.
--- NOTE | 2019-06-26 15:59 | P.PN ---
Subjective Progress Note Date: 06/26/19 Eva Haas is a 69 yo F with no significant PMH who presented to the ED after experiencing a 4 day history of intermittent interscapular pain, L shoulder pain, and LUE discomfort. She states this feeling had not been associated with activity and waxed and waned in intensity throughout the day. She denies chest pressure, palpitations, or shortness of breath. Pt did experience a bit of nausea and some diaphoresis with her pain. She notes she thought it was gas or her gallbladder and had tried to move around but could not get comfortable. When her pain worsened and became constant this am, pt came in to the hospital for evaluation. Pt is a nonsmoker, no hx HTN or DM, denies family history of heart disease or stroke. In the ED, her vitals were stable, EKG showed STEMI, WBC 14k, initial trop 8, BNP 2000. Pt was started on heparin and cardiology consulted. She went for cath last night which did show LAD occlusion and she is s/p stenting today. She does feel her discomfort is improved this am. 06/26/2019 status post cath with stent to the LAD, EF 30-35%. Telemetry sinus rhythm. Borderline hypotension, asymptomatic. Doppler pulses-unchanged from yesterday. Denies chest pain, palpitations or shortness of breath. Denies lightheadedness, dizziness or focal deficits. Patient has been downgraded to telemetry, awaiting bed.denies chest pain, palpitations or shortness of breath. Objective - Vital Signs Vital signs: Vital Signs Temp 98.9 F 06/26/19 08:00 Pulse 91 06/26/19 08:00 Resp 24 06/26/19 08:00 BP 94/63 06/26/19 08:00 Pulse Ox 95 06/26/19 05:00 Intake & Output 06/25/19 06/26/19 06/26/19 18:59 06:59 18:59 Intake Total 700 100 240 Output Total 700 550 200 Balance 0 -450 40 Weight 86.183 kg 91.9 kg Intake: Oral 600 100 240 Tube Feeding 100 Output: Urine 700 550 200 Other: Voiding Method Bedside Commode Bedside Commode # Voids 1 # Bowel Movements 1 - Exam General: well nourished, well developed, NAD. Vitals reviewed Eyes: PERRL, EOMI, conjunctiva normal HENT: normocephalic, mucus membranes moist Neck: supple, no JVD Lungs: normal respiratory effort, fine rate basilarcrackles, no rhonchi, no wheezes CV: Regular rate and rhythm, no murmur. Peripheral pulses Doppler Abdomen: soft, nondistended, no organomegaly Lymph: no cervical or axillary LAD Skin: warm and dry. Neuro: A&Ox3, normal mood and affect - Labs CBC & Chem 7: 06/26/19 04:16 06/26/19 04:16 Labs: Abnormal Lab Results - Last 24 Hours (Table) 06/26/19 Range/Units 04:16 Sodium 136 L (137-145) mmol/L Glucose 103 H (74-99) mg/dL Assessment and Plan Assessment: 1) Occlusion of left anterior descending artery,status post cardiac catheterization with stenting Current Visit: Yes Status: Acute Code(s): I24.0 - ACUTE CORONARY THROMBOSIS NOT RESULTING IN MYOCARDIAL INFRC SNOMED Code(s): 089737927 (2) Coronary artery disease Current Visit: Yes Status: Acute Code(s): I25.10 - ATHSCL HEART DISEASE OF [place] CORONARY ARTERY W/O ANG PCTRS SNOMED Code(s): 17906973 (3) Leukocytosis Current Visit: Yes Status: Acute Code(s): D72.829 - ELEVATED WHITE BLOOD C ELL COUNT, UNSPECIFIED SNOMED Code(s): 764082870 (4) ST elevation myocardial infarction (STEMI) Current Visit: Yes Status: Acute Code(s): I21.3 - ST ELEVATION (STEMI) MYOCARDIAL INFARCTION OF [facility] SITE SNOMED Code(s): 50243554 (5) Acute HFrEF (heart failure with reduced ejection fraction),systolic, EF 30- 35% Current Visit: Yes Status: Acute Code(s): I50.21 - ACUTE SYSTOLIC (CONGESTIVE) HEART FAILURE SNOMED Code(s): 297987753 Plan: continue current medication regime ,monitoring and symptomatic treatment. maintain BB, EDER, statin ,ASA. Continue aldactone on dcawaiting telemetry bed. Discharge planning in progress for tomorrow. The impression and plan of care has been dictated as directed. : I performed a history and examination of this patient, discussed the same with the dictator. I agree with the dictator's note ,documented as a scribe. Any additional findings or plans will be noted.
[2019-06-27 06:11] LABS: Mean Platelet Volume 7.5; Platelet Count 232 k/uL (150-450)
[2019-06-27] MEDS: ASPIRIN 81 MG PO SCH (07:59)
[2019-06-27] MEDS: METOPROLOL TARTRATE 12.5 MG TAB PO SCH ×2 (08:00→20:07)
[2019-06-27] MEDS: SPIRONOLACTONE 25 MG TAB PO SCH (08:00)
[2019-06-27] MEDS: LISINOPRIL 2.5 MG TAB PO SCH (08:00)
[2019-06-27] MEDS: ATORVASTATIN 80 MG TAB PO SCH (08:00)
[2019-06-27] MEDS: TICAGRELOR 90 MG TAB PO SCH ×2 (08:01→20:07)
[2019-06-27 09:07] LABS: African American GFR (CKD) >90 (>60 ml/min/1.73 sqM); Anion Gap 8 mmol/L; Blood Urea Nitrogen 11 mg/dL (7-17); Calcium 8.2 mg/dL (8.4-10.2); Carbon Dioxide 24 mmol/L (22-30); Chloride 105 mmol/L (98-107); Glucose 96 mg/dL (74-99); HCT 35.9 % (34.0-46.0); HGB 12.6 gm/dL (11.4-16.0); MCH 30.7 pg (25.0-35.0); MCHC 35.1 g/dL (31.0-37.0); MCV 87.6 fL (80.0-100.0); Magnesium 1.9 mg/dL (1.6-2.3); Mean Platelet Volume 7.7; Platelet Count 239 k/uL (150-450); Potassium 3.9 mmol/L (3.5-5.1); RDW 13.3 % (11.5-15.5); Sodium 137 mmol/L (137-145); WBC 9.4 k/uL (3.8-10.6)
[2019-06-27] MEDS ORDERED: LOPERAMIDE 2 MG CAP PO PRN (09:18)
--- NOTE | 2019-06-27 09:43 | P.PN ---
Subjective Progress Note Date: 06/27/19 This is a 69-year-old female who was admitted with prolonged recurrent chest pains and evidence of anterior wall myocardial infarction. Patient had stent placement of the left anterior descending coronary artery by Dr. Granger. Patient isn't feeling better except complaining of mild shortness of breath with exertion and also nausea. Her troponins went up to 150. EKGs showed evidence of ST elevations. Patient denies any chest pain. Her blood pressure was running low. No arrhythmias detected. We'll continue with current medical therapy with beta deon, EDER inhibitor, aspirin, the length and also lipid- lowering agent. Her groin is soft. Blood works seems to be stable. 06/26/2019: The patient continues to be stable. Denies any chest pain or shortness of breath. Her blood pressures running low in the 90s. Heart rate is about 80-90. She is on beta deon and also small dose of EDER inhibitor . Lungs appeared to be clear. Heart is regular. No arrhythmias detected. Patient is being transferred to stepdown unit. Increase activity as tolerated. Possible discharge within next 24-48 hours. 06/27/2019: The patient remains stable. Denies any chest pain or shortness of breath. Vital signs are stable. Having some problem with diarrhea. Blood pressures running about 90 to 100 systolic. Heart rate is in the 80s. Lungs are clear. Heart is regular. Patient is seemed to be stable from cardiac standpoint. Patient could be discharged home later today. Follow-up with Dr. Gasca as an outpatient. She'll stay in the current medical therapy Objective - Vital Signs Vital signs: Vital Signs Temp 98 F 06/27/19 08:00 Pulse 89 06/27/19 08:00 Resp 29 H 06/27/19 08:00 BP 97/60 06/27/19 08:00 Pulse Ox 96 06/27/19 08:00 Intake & Output 06/26/19 06/27/19 06/27/19 18:59 06:59 18:59 Intake Total 490 Output Total 900 0 Balance -410 0 Weight 90.1 kg Intake: Oral 490 Output: Urine 900 0 Other: Voiding Method Bedside Commode Bedside Commode # Voids 1 3 # Bowel Movements 1 1 4 - Exam GENERAL EXAM: Patient is alert and oriented and doesn't appear to be in any acute distress HEENT: Normocephalic. Normal reaction of pupils, equal size, normal range of extraocular motion. No erythema or exudates in the throat. NECK: No masses, no nuchal rigidity. CHEST: No chest wall deformity. LUNGS: Few rales at the right base which cleared with coughing and deep breathing HEART: S1 and S2 normal with no audible mumurs or gallops. Regular rhythm, femorals equal on both sides.. ABDOMEN: No hepatosplenomegaly, normal bowel sounds, no guarding or rigidity. SKIN: No rashes CENTRAL NERVOUS SYSTEM: No focal deficits. EXTREMITIES: No cyanosis, clubbing or edema. - Labs CBC & Chem 7: 06/27/19 04:52 06/27/19 04:52 Labs: Abnormal Lab Results - Last 24 Hours (Table) 06/27/19 Range/Units 04:52 Calcium 8.2 L (8.4-10.2) mg/dL Assessment and Plan (1) ST elevation myocardial infarction (STEMI) Current Visit: Yes Status: Acute Code(s): I21.3 - ST ELEVATION (STEMI) MYOCARDIAL INFARCTION OF [place] SITE SNOMED Code(s): 87314344 Plan: Patient is clinically stable except having some diarrhea. Stool was sent for Clostridium difficile. Lungs are clear. Heart is regular. Patient could be discharged home from [facility] standpoint. Follow-up in the office in one week the Dr. Gasca
--- NOTE | 2019-06-27 10:36 | P.PN ---
Subjective Progress Note Date: 06/27/19 Eva Haas is a 69 yo F with no significant PMH who presented to the ED after experiencing a 4 day history of intermittent interscapular pain, L shoulder pain, and LUE discomfort. She states this feeling had not been associated with activity and waxed and waned in intensity throughout the day. She denies chest pressure, palpitations, or shortness of breath. Pt did experience a bit of nausea and some diaphoresis with her pain. She notes she thought it was gas or her gallbladder and had tried to move around but could not get comfortable. When her pain worsened and became constant this am, pt came in to the hospital for evaluation. Pt is a nonsmoker, no hx HTN or DM, denies family history of heart disease or stroke. In the ED, her vitals were stable, EKG showed STEMI, WBC 14k, initial trop 8, BNP 2000. Pt was started on heparin and cardiology consulted. She went for cath last night which did show LAD occlusion and she is s/p stenting today. She does feel her discomfort is improved this am. 06/26/2019 status post cath with stent to the LAD, EF 30-35%. Telemetry sinus rhythm. Borderline hypotension, asymptomatic. Doppler pulses-unchanged from yesterday. Denies chest pain, palpitations or shortness of breath. Denies lightheadedness, dizziness or focal deficits. Patient has been downgraded to telemetry, awaiting bed.denies chest pain, palpitations or shortness of breath. 06/27/2019 multiple episodes of diarrhea since yesterday. Complains of mild shortness of breath and dizziness with minimal exertion up to chair. Borderline hypotension, systolic blood pressures 90s to low 100s. Denies chest pain, palpitations. Telemetry sinus rhythm. Objective - Vital Signs Vital signs: Vital Signs Temp 98 F 06/27/19 08:00 Pulse 89 06/27/19 08:00 Resp 20 06/27/19 08:00 BP 97/60 06/27/19 08:00 Pulse Ox 96 06/27/19 08:00 Intake & Output 06/26/19 06/27/19 06/27/19 18:59 06:59 18:59 Intake Total 490 Output Total 900 0 Balance -410 0 Weight 90.1 kg Intake: Oral 490 Output: Urine 900 0 Other: Voiding Method Bedside Commode Bedside Commode # Voids 1 3 # Bowel Movements 1 1 4 - Exam General: well nourished, well developed, NAD. Tired appearing. Eyes: PERRL, EOMI, conjunctiva normal, HENT: normocephalic, mucus membranes moist Neck: supple, no JVD Lungs: normal respiratory effort, fine right basilar crackles, no rhonchi, no wheezes CV: Regular rate and rhythm, no murmur. Peripheral pulses Doppler Abdomen: soft, nondistended, no organomegaly Lymph: no cervical or axillary LAD Skin: warm and dry. Neuro: A&Ox3, normal mood and affect - Labs CBC & Chem 7: 06/27/19 04:52 06/27/19 04:52 Labs: Abnormal Lab Results - Last 24 Hours (Table) 06/27/19 Range/Units 04:52 Calcium 8.2 L (8.4-10.2) mg/dL Assessment and Plan Assessment: 1) Occlusion of left anterior descending artery,status post cardiac catheterization with stenting Current Visit: Yes Status: Acute Code(s): I24.0 - ACUTE CORONARY THROMBOSIS NOT RESULTING IN MYOCARDIAL INFRC SNOMED Code(s): 472547866 (2) Coronary artery disease Current Visit: Yes Status: Acute Code(s): I25.10 - ATHSCL HEART DISEASE OF [place] CORONARY ARTERY W/O ANG PCTRS SNOMED Code(s): 33719885 (3) Leukocytosis Current Visit: Yes Status: Acute Code(s): D72.829 - ELEVATED WHITE BLOOD CELL COUNT, UNSPECIFIED SNOMED Code(s): 256701290 (4) ST elevation myocardial infarction (STEMI) Current Visit: Yes Status: Acute Code(s): I21.3 - ST ELEVATION (STEMI) MYOCARDIAL INFARCTION OF [facility] SITE SNOMED Code(s): 18436192 (5) Acute HFrEF (heart failure with reduced ejection fraction),systolic, EF 30- 35% Current Visit: Yes Status: Acute Code(s): I50.21 - ACUTE SYSTOLIC (CONGESTIVE) HEART FAILURE SNOMED Code(s): 841717703 Plan: continue current medication regime ,monitoring and symptomatic treatment. maintain BB, statin ,ASA. Continue aldactone on dc. Rule out C. difficile colitis, culture sent. Imodium pending negative culture results. Currently hold EDER inhibitor secondary to borderline hypotension. PT/OT. Continue monitoring overnight with discharge planning in progress for tomorrow. The impression and plan of care has been dictated as directed. : I performed a history and examination of this patient, discussed the same with the dictator. I agree with the dictator's note ,documented as a scribe. Any additional findings or plans will be noted.
--- NOTE | 2019-06-27 11:38 | CDI ---
Documentation Clarification Form Date: 06/27/2019 11:26:40 AM From: Tomasa Barnett CCS, CCDS Admit Date: 06/24/2019 5:19:00 PM Patient Name: Eva Haas Visit Number: [id number] Discharge Date: ATTENTION: The Clinical Documentation Specialists (CDI) and [facility] Coding Staff appreciate your assistance in clarifying documentation. Please respond to the clarification below the line at the bottom and electronically sign. The CDI & [facility] Coding staff will review the response and follow-up if needed. Please note: Queries are made part of the Legal Health Record. If you have any questions, please contact the author of this message via ITS. Dr. Jay Birmingham: Per the attending progress notes status post heart catheterization & stenting of LAD: "borderline hypotension" is documented. EDER inhibitor held secondary to borderline hypotension. Patient also having multiple episodes of diarrhea status post heart cath. Patients Admitting Diagnosis: NSTEMI, Acute systolic CHF Post-Operative Diagnosis: Same, Borderline hypotension Procedure performed: Left Heart Catheterization & PTCA w/stent to LAD History/Risk Factors: No significant PMH. Smoker. Clinical Indicators: Presented with intermittent interscapular pain, left shoulder pain & LUE pain x4 days, some nausea & diaphoresis. CXR: negative. Treatment: Procedure as above. po ASA, po Lipitor, po Lopressor, IV fluids, po Aldactone, po KCL. EDER inhibitor held. In order to accurately reflect this patients severity of illness, please clarify if the "borderline hypotension" diagnosis documented postoperatively is: An expected post-procedural or post-surgical condition, please clarify cause if known. An unexpected post-procedural or post-surgical condition related to surgical care (a complication of care), please clarify cause if known. An unexpected post-procedural or post-surgical condition, related to the patients underlying medical comorbidities Not related to the patient's procedure. Other, please specify ____ Unable to determine (Last Revision: January 2019) Not related to procedure MTDD
[2019-06-27 18:57] VITALS: RESP 16
[2019-06-28 03:31] VITALS: PULSE 87
[2019-06-28 07:56] VITALS: BP 109/66; TEMP 98.1
[2019-06-28] MEDS: METOPROLOL TARTRATE 12.5 MG TAB PO SCH (08:23)
[2019-06-28] MEDS: ASPIRIN 81 MG PO SCH (08:23)
[2019-06-28] MEDS: ATORVASTATIN 80 MG TAB PO SCH (08:25)
[2019-06-28] MEDS: TICAGRELOR 90 MG TAB PO SCH (08:27)
[2019-06-28] MEDS: SPIRONOLACTONE 25 MG TAB PO SCH (08:28)
--- NOTE | 2019-06-28 09:17 | P.DS ---
Providers Date of admission: 06/24/19 17:19 Expected date of discharge: 06/28/19 Attending physician: Jay Birmingham MD Consults: 06/24/19 17:19 Consult Physician Urgent Consulting Provider: Reynold Granger Consult Reason/Comments: stemi Do you want consulting provider notified?: Yes 06/24/19 19:02 Consult Physician Routine Consulting Provider: [facility] Consult Reason/Comments: Post Interventional patient Do you want consulting provider notified?: Already Contacted Primary care physician: Sunita Rivas Hospital Course: Final Diagnoses: 1) Occlusion of left anterior descending artery,status post cardiac catheterization with stenting Current Visit: Yes Status: Acute Code(s): I24.0 - ACUTE CORONARY THROMBOSIS NOT RESULTING IN MYOCARDIAL INFRC SNOMED Code(s): 724900878 (2) Coronary artery disease Current Visit: Yes Status: Acute Code(s): I25.10 - ATHSCL HEART DISEASE OF [place] CORONARY ARTERY W/O ANG PCTRS SNOMED Code(s): 52702887 (3) Leukocytosis Current Visit: Yes Status: Acute Code(s): D72.829 - ELEVATED WHITE BLOOD CELL COUNT, UNSPECIFIED SNOMED Code(s): 507637392 (4) ST elevation myocardial infarction (STEMI) Current Visit: Yes Status: Acute Code(s): I21.3 - ST ELEVATION (STEMI) MYOCARDIAL INFARCTION OF [facility] SITE SNOMED Code(s): 09376171 (5) Acute HFrEF (heart failure with reduced ejection fraction),systolic, EF 30- 35% Current Visit: Yes Status: Acute Code(s): I50.21 - ACUTE SYSTOLIC (CONGESTIVE) HEART FAILURE SNOMED Code(s): 939858769 (6) borderline hypotension, post STEMI, post cardiac catheterization, expected, multifactorial. JC inhibitor remains on hold Hospital course:Eva Haas is a 69 yo F with no significant PMH who presented to the ED after experiencing a 4 day history of intermittent interscapular pain, L shoulder pain, and LUE discomfort. She states this feeling had not been associated with activity and waxed and waned in intensity throughout the day. She denies chest pressure, palpitations, or shortness of breath. Pt did experience a bit of nausea and some diaphoresis with her pain. She notes she thought it was gas or her gallbladder and had tried to move around but could not get comfortable. When her pain worsened and became constant this am, pt came in to the hospital for evaluation. Pt is a nonsmoker, no hx HTN or DM, denies family history of heart disease or stroke. In the ED, her vitals were stable, EKG showed STEMI, WBC 14k, initial trop 8, BNP 2000. Pt was started on heparin and cardiology consulted. She went for cath last night which did show LAD occlusion and she is s/p stenting today. She does feel her discomfort is improved this am. 06/26/2019 status post cath with stent to the LAD, EF 30-35%. Telemetry sinus rhythm. Borderline hypotension, asymptomatic. Doppler pulses-unchanged from yesterday. Denies chest pain, palpitations or shortness of breath. Denies lightheadedness, dizziness or focal deficits. Patient has been downgraded to telemetry, awaiting bed.denies chest pain, palpitations or shortness of breath. 06/27/2019 multiple episodes of diarrhea since yesterday. Complains of mild shortness of breath and dizziness with minimal exertion up to chair. Borderline hypotension, systolic blood pressures 90s to low 100s. Denies chest pain, palpitations. Telemetry sinus rhythm. Diarrhea tested negative for C. difficile colitis, improved. Significant clinical improvement. Cleared by cardiology for discharge. Borderline hypotension, JC inhibitor will remain on hold, and be reevaluated outpatient with PCP at follow-up visit. Patient is being discharged home in a stable condition with guarded prognosis. - Exam General: Alert and oriented 3, no acute distress. Lungs: normal respiratory effort, fine right basilar crackles, no rhonchi, no wheezes CV: Regular rate and rhythm, no murmur. Abdomen: soft, nondistended, positive bowel sounds Neuro: No focal deficits The impression and plan of care has been dictated as directed. : I performed a history and examination of this patient, discussed the same with the dictator. I agree with the dictator's note ,documented as a scribe. Any additional findings or plans will be noted. Time taken: 35 minutes Patient Condition at Discharge: Stable Plan - Discharge Summary Discharge Rx Participant: Yes New Discharge Prescriptions: New Spironolactone [Aldactone] 12.5 mg PO DAILY #30 tab Ticagrelor [Brilinta] 90 mg PO BID #60 tab Aspirin EC [Ecotrin Low Dose] 81 mg PO DAILY #30 tablet. Atorvastatin [Lipitor] 80 mg PO DAILY #30 tab Metoprolol Tartrate [Lopressor] 12.5 mg PO BID #60 tab Nitroglycerin Sl Tabs [Nitrostat] 0.4 mg SUBLINGUAL Q5M PRN #100 tab PRN Reason: Chest Pain Discharge Medication List Aspirin EC [Ecotrin Low Dose] 81 mg PO DAILY #30 tablet. 06/28/19 [Rx] Atorvastatin [Lipitor] 80 mg PO DAILY #30 tab 06/28/19 [Rx] Metoprolol Tartrate [Lopressor] 12.5 mg PO BID #60 tab 06/28/19 [Rx] Nitroglycerin Sl Tabs [Nitrostat] 0.4 mg SUBLINGUAL Q5M PRN #100 tab 06/28/19 [Rx] Spironolactone [Aldactone] 12.5 mg PO DAILY #30 tab 06/28/19 [Rx] Ticagrelor [Brilinta] 90 mg PO BID #60 tab 06/28/19 [Rx] Follow up Appointment(s)/Referral(s): Tyler De La Cruz MD [STAFF PHYSICIAN] - 07/03/19 9:45 am (Monday with Deysi Low NP) Sunita Rivas DO [Primary Care Provider] - 07/04/19 10:30 am () Ambulatory/Diagnostic Orders: Complete Blood Count w/diff [LAB.AMB] Time Frame: 3 Days, Location: None Selected Patient Instructions/Handouts: *Surgery [facility] - After Heart Catheterization - Telephone Advice Nurse Instructions, Left Heart Catheterization (DC) Activity/Diet/Wound Care/Special Instructions: Jc on hold secondary to borderline hypotension reevaluate outpatient with PCP,.
--- NOTE | 2019-06-28 15:31 | P.PN ---
Subjective Progress Note Date: 06/28/19 This is a 69-year-old female who presented to the hospital with an acute anterior wall myocardial infarction, ST elevation, underwent angioplasty and stenting of the LAD. She was seen and examined this morning, denied any chest pain or difficulty in breathing, up ambulating without any difficulty. Blood pressure 110/60 with a heart rate in the 80s. Sodium 137, potassium 3.9, BUN 11 and creatinine 0.6. Objective - Vital Signs Vital signs: Vital Signs Temp 98.1 F 06/28/19 07:48 Pulse 87 06/28/19 08:15 Resp 16 06/28/19 08:15 BP 109/66 06/28/19 07:48 Pulse Ox 97 06/28/19 07:48 Intake & Output 06/27/19 06/28/19 06/28/19 18:59 06:59 18:59 Intake Total 360 Balance 360 Weight 86.1 kg Intake: Oral 360 Other: Voiding Method Bedside Commode Bedside Commode Toilet # Voids 4 1 # Bowel Movements 4 - Exam PHYSICAL EXAMINATION: GENERAL: 69-year-old female in no acute distress at the time of my examination HEENT: Head is atraumatic, normocephalic. Pupils equal, round. Sclera anicteric. Conjunctiva are clear. Mucous membranes of the mouth are moist. Neck is supple. There is no elevated jugular venous pressure. No carotid bruit is heard. HEART EXAMINATION: Heart S1, S2 normal. No murmur or gallop heard. CHEST EXAMINATION: Lungs are clear to auscultation and precussion. No chest wall tenderness is noted on palpation or with deep breathing. ABDOMEN: Soft, nontender. Bowel sounds are heard. No organomegaly noted. EXTREMITIES: 2+ peripheral pulses with no evidence of peripheral edema and no calf tenderness noted. NEUROLOGIC patient is awake, alert and oriented 3 . . - Labs CBC & Chem 7: 06/27/19 04:52 06/27/19 04:52 Assessment and Plan Plan: Assessment and plan #[address] elevation [place] status post angioplasty and stenting of the LAD #2 hyperlipidemia #3 nicotine dependence Plan From cardiology's perspective, patient may be able to be discharged home today. We'll make her a follow-up appointment in the office with Dr. De La Cruz post discharge. DNP note has been reviewed, I agree with a documented findings and plan of care. Patient was seen and examined.
== END 2019-06-28 10:54 | disposition home or self-care (01) | DRG 246 ==
LOC: EC 16:49 → 2SICU 17:19 → 3SCARD 06-27 18:42
PROVIDERS: ADMIT Family Medicine; ATTEND Family Medicine
PROC: 027034Z Dilation of Coronary Artery, One Artery with Drug-eluting Intraluminal Device, Percutaneous Approach (ICD-10-PCS; principal; 2019-06-25)
PROC: B2111ZZ Fluoroscopy of Multiple Coronary Arteries using Low Osmolar Contrast (ICD-10-PCS; principal; 2019-06-25)
PROC: 4A023N7 Measurement of Cardiac Sampling and Pressure, Left Heart, Percutaneous Approach (ICD-10-PCS; principal; 2019-06-25)
DX: I21.09 ST elevation (STEMI) myocardial infarction involving other coronary artery of anterior wall (principal); I50.21 Acute systolic (congestive) heart failure; D72.829 Elevated white blood cell count, unspecified; E78.5 Hyperlipidemia, unspecified; F17.200 Nicotine dependence, unspecified, uncomplicated; I25.10 Atherosclerotic heart disease of native coronary artery without angina pectoris; Z90.710 Acquired absence of both cervix and uterus; Z95.5 Presence of coronary angioplasty implant and graft; Z88.5 Allergy status to narcotic agent; I95.9 Hypotension, unspecified
CPT/HCPCS: 36415; 71045; 80048; 80053; 80061; 82550; 82553; 83690; 83735; 83880; 84484; 85027; 85049; 85347; 85610; 85730; 87324; 93306; 93458; C1874

== ENCOUNTER → 2020-06-25 | Outpatient (CLI) | payer MEDICARE, OTHER ==
[2020-06-25 16:49] LABS: Carbon Dioxide 27.5 mmol/L (21.6-31.8); Chol/HDL Ratio 3.37; LDL Cholesterol,Calculated 76.2 mg/dL (0.0-131.0); Magnesium 1.8 mg/dL (1.5-2.4); VLDL Calculation 25.8 mg/dL (5.00-40.00)
[2020-06-25 16:50] LABS: African American GFR (CKD) 87.8 (60.0-200.0); Anion Gap 8.5 mmol/L (4.00-12.00); BUN/Creat Ratio 18.75 Ratio (12.00-20.00); Non-African American GFR(CKD) 75.8 (60.0-200.0)
== END | disposition home or self-care (01) ==
LOC: LABWHC1 08:58
PROVIDERS: ATTEND Physician Assistant
DX: I50.9 Heart failure, unspecified (principal); I25.10 Atherosclerotic heart disease of native coronary artery without angina pectoris; R00.2 Palpitations; Z13.1 Encounter for screening for diabetes mellitus
CPT/HCPCS: 36415; 80048; 80061; 83036; 83735; 84443; 85027

== ENCOUNTER → 2020-06-25 | Outpatient (CLI) | payer MEDICARE, OTHER ==
[2020-06-25 10:09] LABS: HCT 37.7 % (34.0-46.0); HGB 12.7 gm/dL (11.4-16.0); MCH 28.8 pg (25.0-35.0); MCHC 33.5 g/dL (31.0-37.0); Mean Platelet Volume 7.6; Platelet Count 234 k/uL (150-450); RBC 4.39 m/uL (3.80-5.40); RDW 12.8 % (11.5-15.5); WBC 8.2 k/uL (3.8-10.6)
== END | disposition home or self-care (01) ==
LOC: LABPAT 09:00
PROVIDERS: ATTEND Internal Medicine Interventional Cardiology
DX: Z01.818 Encounter for other preprocedural examination (principal); I50.22 Chronic systolic (congestive) heart failure
CPT/HCPCS: 85027

== ENCOUNTER → 2020-06-29 | Day surgery (SDC) | payer MEDICARE, OTHER ==
[2020-06-25 13:48] VITALS: BMI 32.3
[~2020-06-29] MED LIST: ALPRAZolam 0.25 MG TAB PO PRN; ALPRAZolam 0.5 MG TAB PO PRN; ASPIRIN 325 MG TAB PO ONE; ASPIRIN 81 MG PO SCH; ATORVASTATIN 80 MG TAB PO ONE; ATORVASTATIN 80 MG TAB PO SCH; HEPARIN SODIUM 1,000 UN/ML (10ML VL) ONE; IOPAMIDOL-370 100ML BTL INJ ONE; LIDOCAINE 1% INJ 10MG/ML (20 ML MDV) ONE; METOPROLOL SUCCINATE (ER) 50 MG TAB.ER.24H PO SCH; MIDAZOLAM 2 MG/2 ML VIAL IV ONE; NITROGLYCERIN SL TABS 0.4 MG TAB SUBLINGUAL PRN; RX INFO: IV CONTRAST WAS GIVEN 1 EACH MISC MISCELLANE PRN; SODIUM CHLORIDE 0.9% 1,000 ML IV SCH; SODIUM CHLORIDE 0.9% 1,000 ML in EMPTY BAG 1 BAG IV ONE; SPIRONOLACTONE 25 MG TAB PO SCH; TICAGRELOR 90 MG TAB PO SCH; VERAPAMIL 2.5 MG/ML 2 ML AMP ONE; fentaNYL (PF) 50 MCG/ML 2 ML AMP IV ONE; fentaNYL (PF) 50 MCG/ML 2 ML AMP ONE; lisinopriL 10 MG TAB PO SCH
[2020-06-29 06:56] VITALS: RESP 18
[2020-06-29] MEDS: LIDOCAINE 1% INJ 10MG/ML (20 ML MDV) SQ ONE ×2 (07:54→08:02)
--- NOTE | 2020-06-29 10:04 | CC ---
CARDIAC CATHETERIZATION REPORT Mrs. Haas is a 70-year-old female who is followed by Dr. De La Cruz who in June of last year presented with an acute anterior myocardial infarction, underwent stenting of the LAD, had evidence of ischemic cardiomyopathy. Subsequently an ICD recently. She has been complaining of recurrent episode of discomfort between her shoulder blades, somewhat reminding her of the symptoms she had prior to the intervention. She was evaluated by Dr. De La Cruz and recommendation made regarding cardiac catheterization. The procedures, risks, and complication were discussed with the patient, who is in full understanding and agreement. PROCEDURE: Patient was brought to [facility] in the fasting semi-sedated state after receiving fentanyl and Benadryl and achieving moderate conscious sedated state. An attempt to cannulate the right radial artery were unsuccessful. Subsequently, using Xylocaine anesthesia and Seldinger technique, a 6-Irish sheath was introduced right femoral artery. Selective right and left coronary angiography performed using 6-Irish 4 bend right and left Frannie catheter. Multiple views of the coronary artery including hemiaxial views were obtained. Following that, a 6-Irish tight pigtail catheter was introduced in the left ventricle and a 30-degree STRAUSS view of the left ventricle was obtained. Following that, catheter and sheath were removed. Hemostasis was obtained with deployment of an Angio-Seal. There was no immediate complication. Patient is returned to her room in stable condition. FINDINGS: LEFT MAIN: This is a short-sized vessel, bifurcating into left circumflex, left anterior descending artery. Left main coronary artery has no evidence of high-grade stenosis. LEFT ANTERIOR DESCENDING ARTERY: This is a large-sized vessel, reaching toward the apex with a wraparound apex segment. The stented segment in the proximal LAD was patent with no evidence of restenosis. There was no evidence of obstructive disease in the diagonal branch. The rest of the vessel has no high-grade stenosis. LEFT CIRCUMFLEX: This is a dominant large-sized vessel, giving rise to a proximal obtuse marginal branch, distally bifurcating into PDA and posterolateral segment and branches. The left circumflex as well as branches have no evidence of obstructive coronary artery disease. RIGHT CORONARY ARTERY: This is a small nondominant vessel that has no evidence of high- grade stenosis. LEFT VENTRICULOGRAM: Left ventriculogram is performed in 30-degree STRAUSS view and revealed an anteroapical severe hypokinesis to akinesis. Ejection fraction is 30% to 35%. There was no evidence of significant mitral regurgitation. HEMODYNAMICS: There was no gradient across the aortic valve. The left ventricular end- diastolic pressure lopez was 20 mmHg. CONCLUSION: 1. Patent stent to the LAD. 2. Severely impaired left ventricular systolic function. 3. Left dominance. RECOMMENDATION: In view of findings and anatomy, recommend continue medical therapy with aggressive risk modifications being initiated. Those findings and recommendation were discussed with the patient and her family and they are full understanding and agreement. Duration of procedure is 29 minutes. MMODL / IJN: [id number] /
[2020-06-29 13:34] VITALS: BP 110/66; PULSE 62
== END | disposition home or self-care (01) ==
LOC: CATHCVL 06:26
PROVIDERS: ATTEND Internal Medicine Interventional Cardiology
DX: M89.8X1 Other specified disorders of bone, shoulder (principal); I25.10 Atherosclerotic heart disease of native coronary artery without angina pectoris; I25.5 Ischemic cardiomyopathy; I50.22 Chronic systolic (congestive) heart failure; I25.2 Old myocardial infarction; Z95.5 Presence of coronary angioplasty implant and graft; Z95.810 Presence of automatic (implantable) cardiac defibrillator; Z82.49 Family history of ischemic heart disease and other diseases of the circulatory system; F17.210 Nicotine dependence, cigarettes, uncomplicated; Z79.02 Long term (current) use of antithrombotics/antiplatelets; Z79.82 Long term (current) use of aspirin; Z88.5 Allergy status to narcotic agent
CPT/HCPCS: 93458; C1760; C1894 ×2; C1769 ×2; J2250; J2001; J3010; Q9967

== ENCOUNTER → 2020-09-01 | Outpatient (CLI) | payer MEDICARE, OTHER ==
--- NOTE | 2020-09-01 15:48 | NM ---
EXAMINATION TYPE: NM hepatobiliary w EF DATE OF EXAM: 09/01/2020 COMPARISON: NONE HISTORY: Abdominal pain TECHNIQUE: After the intravenous administration of 5.3 mCi Tc 99m Mebrofenin hepatobiliary scintigrap hy is performed. Immediate images post injection. FINDINGS: There is satisfactory initial accumulation of tracer by the liver. The gallbladder is visualized wit hin 10 minutes. The small bowel activity is noted within 28 minutes. At one hour 8 ounces of oral e nsure plus is given to mimic CCK and gallbladder ejection fraction is calculated at 95 %, in the norm al range. Therefore there is no scintigraphic evidence of cystic or common bile duct obstruction, ac skylar or chronic cholecystitis, or biliary dyskinesia. IMPRESSION: Exam is within normal limits.
== END | disposition home or self-care (01) ==
LOC: RADNMMAIN 06:29
PROVIDERS: ATTEND Family Medicine
DX: R10.9 Unspecified abdominal pain (principal)
CPT/HCPCS: 78226; A9537

== ENCOUNTER → 2023-01-12 | Day surgery (SDC) | payer MEDICARE, OTHER ==
[2023-01-09 15:39] VITALS: BMI 32.6
[~2023-01-12] MED LIST changes: -ALPRAZolam 0.25 MG TAB PO PRN; -ALPRAZolam 0.5 MG TAB PO PRN; -ASPIRIN 325 MG TAB PO ONE; -ASPIRIN 81 MG PO SCH; -ATORVASTATIN 80 MG TAB PO ONE; -ATORVASTATIN 80 MG TAB PO SCH; -HEPARIN SODIUM 1,000 UN/ML (10ML VL) ONE; -IOPAMIDOL-370 100ML BTL INJ ONE; +LACTATED RINGERS 1,000 ML IV ONE; +LACTATED RINGERS 1,000 ML IV SCH; -LIDOCAINE 1% INJ 10MG/ML (20 ML MDV) ONE; -METOPROLOL SUCCINATE (ER) 50 MG TAB.ER.24H PO SCH; -MIDAZOLAM 2 MG/2 ML VIAL IV ONE; -NITROGLYCERIN SL TABS 0.4 MG TAB SUBLINGUAL PRN; +PROPOFOL 10 MG/ML 20 ML VIAL IV ONE; -RX INFO: IV CONTRAST WAS GIVEN 1 EACH MISC MISCELLANE PRN; -SODIUM CHLORIDE 0.9% 1,000 ML IV SCH; -SODIUM CHLORIDE 0.9% 1,000 ML in EMPTY BAG 1 BAG IV ONE; -SPIRONOLACTONE 25 MG TAB PO SCH; -TICAGRELOR 90 MG TAB PO SCH; -VERAPAMIL 2.5 MG/ML 2 ML AMP ONE; -fentaNYL (PF) 50 MCG/ML 2 ML AMP IV ONE; -fentaNYL (PF) 50 MCG/ML 2 ML AMP ONE; -lisinopriL 10 MG TAB PO SCH
[2023-01-12 09:05] VITALS: TEMP 97.5
--- NOTE | 2023-01-12 09:20 | P.GSHP ---
History of Present Illness H&P Date: 01/12/23 Chief Complaint: Positive colon guard test Is a 72-year-old female who has a recent positive colon guard test. Patient presents today for screening colonoscopy. Past Medical History Past Medical History: Hyperlipidemia, Hypertension, Myocardial Infarction ([place]) Last Myocardial Infarction Date:: 2018 History of Any Multi-Drug Resistant Organisms: None Reported Past Surgical History: AICD, Heart Catheterization, Heart Catheterization With Stent, Hernia Repair, Hysterectomy, Tonsillectomy Additional Past Surgical History / Comment(s): D&C - multiple, colonoscopy Past Anesthesia/Blood Transfusion Reactions: Postoperative Nausea & Vomiting (PONV) Date of Last Stent Placement:: 2018 Type of Cardiac Device: AICD Device Placement Date:: 2019 Smoking Status: Former smoker - Past Family History Mother Additional Family Medical History / Comment(s): MOM IN CAR ACCIDENT. MOM'S TWIN BROTHER HAD CANCER Father Family Medical History: Unable to Obtain Additional Family Medical History / Comment(s): HHX UNKNOWN Medications and Allergies Home Medications Medication Instructions Recorded Confirmed Type Aspirin EC [Ecotrin Low Dose] 81 mg PO DAILY #30 tablet. 06/28/19 01/12/23 Rx Atorvastatin [Lipitor] 80 mg PO HS 01/09/23 01/12/23 History Ezetimibe [Zetia] 10 mg PO HS 01/09/23 01/12/23 History Metoprolol Succinate [Toprol XL] 100 mg PO DAILY 01/09/23 01/12/23 History Sacubitril/Valsartan [Entresto 24 1 each PO BID 01/09/23 01/12/23 History mg-26 mg Tablet] Spironolactone [Aldactone] 25 mg PO DAILY 01/09/23 01/12/23 History Allergies Allergy/AdvReac Type Severity Reaction Status Date / Time codeine Allergy Rash/Hives Verified 01/12/23 08:58 fluoride Allergy Rash/Hives Verified 01/12/23 08:58 Surgical - Exam Vital Signs Temp Pulse Resp BP Pulse Ox 97.5 F L 85 15 151/64 98 01/12/23 09:04 01/12/23 09:04 01/12/23 09:04 01/12/23 09:04 01/12/23 09:04 - General well developed, well nourished, no distress - Eyes PERRL - ENT normal pinna - Neck no masses - Respiratory normal expansion - Cardiovascular Rhythm: regular - Abdomen Abdomen: soft, non tender Assessment and Plan Assessment: Positive colon guard test. We'll perform screening colonoscopy
--- NOTE | 2023-01-12 09:42 | P.OP ---
Date of Procedure: 01/12/23 Preoperative Diagnosis: Positive colon guard test Postoperative Diagnosis: Rectal polyp Sigmoid colon polyp Procedure(s) Performed: Colonoscopy Anesthesia: MAC Surgeon: Wes Doherty Pathology: other (Colon polyp) Condition: stable Disposition: PACU Description of Procedure: Patient's placed on the endoscopy table in the lateral position. She received IV sedation. Digital rectal exam was performed. This revealed no ebonized. The colonoscope was then placed patient anus passed throughout the colon. The scope couldn't be placed into the ileocecal valve area due to tortuosity of the of the bowel. Several times made to maneuver the scope into the cecum. However this impossible. Scope was then withdrawn. The visualized right colon appeared normal. The transverse colon appeared normal. The descending colon appeared normal. In the distal sigmoid there was a pocket polyp was removed with the snare. Scope was back the rectum another polyp seen this removed with the cold forcep. Scope was withdrawn for patient.
[2023-01-12 09:54] VITALS: PULSE 88
[2023-01-12 09:58] VITALS: BP 102/70; RESP 18
== END | disposition home or self-care (01) ==
LOC: ORWHC2ENDO 08:32
PROVIDERS: ATTEND Surgery
DX: D12.5 Benign neoplasm of sigmoid colon (principal); D12.8 Benign neoplasm of rectum; I10 Essential (primary) hypertension; E78.5 Hyperlipidemia, unspecified; I25.2 Old myocardial infarction; Z95.5 Presence of coronary angioplasty implant and graft; Z90.710 Acquired absence of both cervix and uterus; Z90.49 Acquired absence of other specified parts of digestive tract; Z87.891 Personal history of nicotine dependence; Z79.82 Long term (current) use of aspirin; Z88.5 Allergy status to narcotic agent; Z88.8 Allergy status to other drugs, medicaments and biological substances; Z98.890 Other specified postprocedural states; Z79.899 Other long term (current) drug therapy
CPT/HCPCS: 88305; 45385; J2704

== ENCOUNTER → 2024-01-11 | Outpatient (CLI) | payer MEDICARE, OTHER ==
[2024-01-11 08:38] LABS: African American GFR (CKD) >90 (>60 ml/min/1.73 sqM); Blood Urea Nitrogen 14 mg/dL (7-17); Non-African American GFR(CKD) 85 (>60 ml/min/1.73 sqM)
--- NOTE | 2024-01-11 11:17 | CT ---
EXAMINATION TYPE: CT abdomen pelvis w con DATE OF EXAM: 01/11/2024 COMPARISON: None INDICATION: LLQ pain x2 months DLP: 1663 mGycm, Automated exposure control for dose reduction was used. CONTRAST: 100 mL of Isovue 300. Study performed with Oral Contrast TECHNIQUE: Axial images were obtained from above the diaphragm to the pubic rami in the axial plane a t 5 mm thick sections. Reconstructed images are reviewed on the computer in the coronal plane. FINDINGS: Limited CT sections are obtained the lung bases. The lung bases are clear. CT ABDOMEN: Liver: Hepatic cyst is present. Spleen: Normal Pancreas: Normal Adrenal glands: The adrenal glands are normal. Gallbladder: Cholelithiasis is present Kidneys: No masses are evident. No hydronephrosis is present. Some peripelvic cysts may be present in the inferior pole left kidney. Delayed images were obtained through the kidneys, which remain unr emarkable. Aorta: Vascular calcification is within the aorta. Inferior vena cava: Normal. CT PELVIS: Loops of bowel within the abdomen and pelvis are normal. Oral contrast extends to the distal colo n. Appendix: Normal as visualized. Urinary bladder: Normal. Genitourinary structures: Uterus and ovaries are not identified. Osseous structures: No suspicious lytic or sclerotic lesions. IMPRESSION: 1. Hepatic cyst. 2. Mild inferior pole left renal peripelvic cysts. 3. No acute abnormality to account for left lower quadrant pain.
== END | disposition home or self-care (01) ==
LOC: RADCTMAIN 08:06
PROVIDERS: ATTEND Family Medicine
DX: K76.89 Other specified diseases of liver (principal)
CPT/HCPCS: 82565; 84520; 74177; 36415; Q9967